=== PATIENT | male | born 1990 | race Caucasian/White ===

== ENCOUNTER 2021-08-10 22:55 | Emergency (ER) | payer OTHER ==
[~2021-08-10 22:55] MED LIST: CITRATE OF MAG296 ML PO; DICLOFENAC SODI75 MG PO; KEFLEX500 MG PO; LEVAQUIN750 MG PO; LODINE400 MG PO; MIRALAX 238GM238 GM PO; SKELAXIN800 MG PO; VIBRAMYCIN100 MG PO; VOLTAREN **OUT75 MG PO
[2021-08-11 00:59] LABS: BASOPHIL 0.5 % (0-2); EOSINOPHIL 1.3 % (0-5); HCT 35.8 % (42.0-52.0); HGB 12.1 g/dl (13.2-18.0); LYMPHOCYTE 8.3 % (15-48); MCH 31.8 pg (25.0-31.0); MCHC 33.8 g/dL (32.0-36.0); MCV 94.2 fL (78.0-100.0); MONOCYTE 8.8 % (0-12); MPV 9.5 fL (6.0-9.5); NEUTROPHIL 79.8 % (41-80); NRBC 0; PLT 374 K/uL (150-400); RDW 12.8 % (11.5-14.0); WBC 15.1 K/uL (4.0-10.5)
[2021-08-11 01:21] LABS: ALBUMIN 2.8 g/dL (3.4-5.0); BILIRUBIN - TOTAL 0.4 mg/dL (0.2-1.0); BUN/CREAT RATIO (CALC) 14.5 RATIO; C-REACTIVE PROTEIN 13.7 mg/dL (<=0.90); CREATININE 0.76 mg/dL (0.67-1.17); GLOBULIN (CALCULATION) 4.2 g/dL; POTASSIUM 3.4 mmol/L (3.5-5.1)
[2021-08-11 01:23] LABS: LACTIC ACID 0.8 mmol/L (0.4-1.9)
[2021-08-11] MEDS ORDERED: VIBRAMYCIN100 MG PO (04:45)
== END 2021-08-11 05:00 | disposition home or self-care (01) ==
LOC: FER 22:55
PROVIDERS: Emergency Medicine Emergency Medical Services
DX: L03.113 Cellulitis of right upper limb (principal); R00.0 Tachycardia, unspecified; F17.200 Nicotine dependence, unspecified, uncomplicated
CPT/HCPCS: 36415; 80053; 83605; 84145; 85025; 85379; 86140; 87040; J1885; J3370; J7030; J7050

== ENCOUNTER 2021-12-25 17:48 | Emergency (ER) | payer OTHER ==
[2021-12-25 19:14] LABS: BASOPHIL 1.1 % (0-2); EOSINOPHIL 0.9 % (0-5); HGB 15.5 g/dl (13.2-18.0); LYMPHOCYTE 28.4 % (15-48); MCH 31.6 pg (25.0-31.0); MCHC 34.4 g/dL (32.0-36.0); MCV 91.6 fL (78.0-100.0); MONOCYTE 10.1 % (0-12); MPV 8.6 fL (6.0-9.5); NRBC 0; PLT 270 K/uL (150-400); RBC 4.91 M/uL (4.70-6.00); RDW 12.9 % (11.5-14.0); WBC 6.6 K/uL (4.0-10.5)
[2021-12-25 19:28] LABS: BUN/CREAT RATIO (CALC) 16.5 RATIO; CREATININE 0.79 mg/dL (0.67-1.17); POTASSIUM 4.2 mmol/L (3.5-5.1)
[2021-12-25 21:08] LABS: BILIRUBIN NEGATIVE (NEGATIVE); BLOOD NEGATIVE Ery/uL (NEGATIVE); CLARITY CLEAR (CLEAR); COLOR YELLOW (YELLOW); GLUCOSE (U) NORMAL (NORMAL); LEUKOCYTES NEGATIVE Leu/uL (NEGATIVE); NITRITE NEGATIVE (NEGATIVE); PROTEIN NEGATIVE (NEGATIVE); UROBILINOGEN 0.2 mg/dL (0.2-1.0)
[2021-12-27 21:06] LABS: CHLAMYDIA TRACHOMATIS, NAA Negative (Negative); NEISSERIA GONORRHOEAE, NAA Negative (Negative)
== END 2021-12-25 21:50 | disposition home or self-care (01) ==
LOC: FER 17:48
PROVIDERS: Nurse Practitioner Family
DX: N50.812 Left testicular pain (principal); F17.210 Nicotine dependence, cigarettes, uncomplicated
CPT/HCPCS: 36415; 76870; 80048; 81003; 85025; 87491; 87591; J0696; Q0162

== ENCOUNTER 2022-03-31 09:58 | Emergency (ER) | payer OTHER | END 2022-03-31 14:13 | disposition home or self-care (01) | LOC: FER 09:58 | DX: S81.811A Laceration without foreign body, right lower leg, initial encounter (principal); S61.411A Laceration without foreign body of right hand, initial encounter; F15.10 Other stimulant abuse, uncomplicated; F11.10 Opioid abuse, uncomplicated; F10.10 Alcohol abuse, uncomplicated; Z02.79 Encounter for issue of other medical certificate; W25.XXXA Contact with sharp glass, initial encounter; Y90.0 Blood alcohol level of less than 20 mg/100 ml | CPT/HCPCS: 36415; 73120; 73590; 96374; G0480; J2310 ==